=== PATIENT | female | born 1960 | race Caucasian/White ===

== ENCOUNTER → 2016-04-11 09:58 | Outpatient (CLI) | payer BC, MEDICARE ==
[2015-12-19 11:22] VITALS: BMI 35.5
[~2016-04-11 09:58] MED LIST: AMITRIPTYLINE H50 MG PO; AMRIX15 M1 PO; ATIVAN2 MG PO; BENICAR20 MG PO; BYSTOLIC10 MG PO; CARAFATE1 G/10 ML PO; CATAPRES TTS-10.1 MG TP; DILAUDID2 MG PO; DURAGESIC1 PATCH .7 TRANSDERM; ELAVIL25 MG PO; EXCEDRIN EXTRA1 TAB PO; KLONOPIN1 MG PO; LINZESS145 MCG PO; METOPROLOL TAR100 MG PO; NORCO 10/325 TA1 TA1 PO; NUCYNTA; ONDANSETRON4 MG/2 M3 IM; ONDANSETRON4 MG/2 M3 IV; PANCREASE PO; PANCRELIPASE 51 EACH PO; PROTONIX40 MG PO; REGLAN10 MG PO; REGLAN5 MG PO; ZANAFLEX4 MG PO; ZOFRAN8 MG PO
== END | disposition home or self-care (01) ==
LOC: D.MRI 09:58
DX: M25.512 Pain in left shoulder (principal)

== ENCOUNTER 2016-04-25 13:41 | Emergency (ER) | payer BC, MEDICARE ==
[2015-12-19 11:22] VITALS: BMI 35.5
== END 2016-04-25 17:20 | disposition home or self-care (01) ==
LOC: D.ER 13:41
DX: S06.0X0A Concussion without loss of consciousness, initial encounter (principal); W07.XXXA Fall from chair, initial encounter; Y93.89 Activity, other specified; Y92.019 Unspecified place in single-family (private) house as the place of occurrence of the external cause; S16.1XXA Strain of muscle, fascia and tendon at neck level, initial encounter; S40.012A Contusion of left shoulder, initial encounter; K86.1 Other chronic pancreatitis

== ENCOUNTER → 2016-06-02 17:14 | Outpatient (CLI) | payer BC, MEDICARE ==
[2015-12-19 11:22] VITALS: BMI 35.5
== END | disposition home or self-care (01) ==
LOC: D.MAMMO 05-29 10:00
DX: Z12.31 Encounter for screening mammogram for malignant neoplasm of breast (principal)

== ENCOUNTER 2016-06-20 04:44 | Emergency (ER) | payer BC, MEDICARE ==
[2015-12-19 11:22] VITALS: BMI 35.5
[2016-06-20 06:03] LABS: BASOPHILS 0.2 % (0-2); EOSINOPHILS 1.5 % (0-7); HEMATOCRIT 44.4 % (36.0-48.0); HEMOGLOBIN 15.3 g/dL (12-16); IMMATURE GRANULOCYTES 0.1 % (0-5); LYMPHOCYTES 24.2 % (15-50); MCH 30.2 pg (26.0-34.0); MCHC 34.5 g/dL (31.0-37.0); MCV 87.6 fL (80.0-100.0); MEAN PLATELET VOLUME 13.6 fL (7.4-10.4); MONOCYTES 10.8 % (2-11); NEUTROPHILS 63.2 % (40-80); RBC 5.07 10x6/uL (4.00-5.40); RDW 13.8 % (11.5-14.5); WBC 8.2 10x3/uL (4.8-10.8)
[2016-06-20 06:06] LABS: PLATELET COUNT 137 10x3/uL (130-400)
[2016-06-20 07:12] LABS: ERYTHROCYTE SEDIMENTATION RATE 14 mm/hr (0-30)
== END 2016-06-20 08:28 | disposition home or self-care (01) ==
LOC: D.ER 04:44
PROVIDERS: Emergency Medicine
DX: M25.551 Pain in right hip (principal); K86.1 Other chronic pancreatitis

== ENCOUNTER → 2016-07-21 15:59 | Outpatient (CLI) | payer BC, MEDICARE ==
[2015-12-19 11:22] VITALS: BMI 35.5
== END | disposition home or self-care (01) ==
LOC: D.MAMMO 08:30
DX: R92.8 Other abnormal and inconclusive findings on diagnostic imaging of breast (principal)

== ENCOUNTER 2016-08-31 10:50 | Emergency (ER) | payer BC, MEDICARE ==
[2015-12-19 11:22] VITALS: BMI 35.5
== END 2016-08-31 17:00 | disposition home or self-care (01) ==
LOC: D.ER 10:50
DX: M51.37 Other intervertebral disc degeneration, lumbosacral region (principal); G43.909 Migraine, unspecified, not intractable, without status migrainosus

== ENCOUNTER 2016-09-12 12:18 | Observation (INO) | payer BC, MEDICARE ==
[~2016-09-12] VITALS: Ht 160 cm; Wt 112.7 kg
[2016-09-12 12:49] LABS: BASOPHILS 0.2 % (0-2); EOSINOPHILS 1.7 % (0-7); HEMATOCRIT 45.8 % (36.0-48.0); HEMOGLOBIN 15.7 g/dL (12-16); IMMATURE GRANULOCYTES 0.2 % (0-5); LYMPHOCYTES 23.9 % (15-50); MCH 30.7 pg (26.0-34.0); MCHC 34.3 g/dL (31.0-37.0); MCV 89.5 fL (80.0-100.0); MEAN PLATELET VOLUME 12.8 fL (7.4-10.4); MONOCYTES 5.7 % (2-11); NEUTROPHILS 68.3 % (40-80); PLATELET COUNT 135 10x3/uL (130-400); RBC 5.12 10x6/uL (4.00-5.40); WBC 8.9 10x3/uL (4.8-10.8)
[2016-09-12 12:53] LABS: APTT 21.9 SECONDS (22.8-39.4); INR 0.91 (0.85-1.17); PROTIME 12.1 SECONDS (11.6-15.0)
[2016-09-12 13:00] LABS: ALBUMIN 3.6 g/dL (3.4-5.0); ALKALINE PHOSPHATASE 108 U/L (46-116); ALT (SGPT) 30 U/L (10-68); BILIRUBIN - TOTAL 0.39 mg/dL (0.2-1.3); CALC OSMOLALITY 284 mosm/kg (275-300); CALCIUM 9.1 mg/dL (8.5-10.1); CARBON DIOXIDE 22.1 mmol/L (21.0-32.0); CHLORIDE - SERUM 110 mmol/L (98-107); CREATININE - SERUM 0.9 mg/dL (0.6-1.3); GLUCOSE 126 mg/dL (74-106); POTASSIUM - SERUM 3.9 mmol/L (3.5-5.1); PROTEIN - SERUM 7.6 g/dL (6.4-8.2); SODIUM 142 mmol/L (136-145); UREA NITROGEN 12 mg/dL (7-18); eGFR NON AFRICAN AMERICAN 69 mL/min (90-120)
[2016-09-12 13:02] LABS: CREATINE KINASE 82 UL (21-215)
[2016-09-12 13:12] LABS: TROPONIN-I < 0.017 ng/mL (0.000-0.060)
--- NOTE | 2016-09-12 16:45 | NUR ---
PT TO ROOM 2219 FROM ER VIA WHEELCHAIR.PT WITHOUT DISTRESS. GAIT STEADY. STATES PAIN BETTER AFTER PAIN MEDS IN ER.ORIENTATION TO ROOM.CALL LIGHT IN REACH
[2016-09-12] MEDS ORDERED: CYCLOBENZAPRINE10 MG PO (17:14)
[2016-09-12] MEDS ORDERED: TOPAMAX200 MG PO (17:17)
[2016-09-12] MEDS ORDERED: BELSOMRA20 MG PO (17:17)
[2016-09-12] MEDS ORDERED: ZOCOR20 MG PO (17:18)
[2016-09-12] MEDS ORDERED: DURAGESIC1 PATCH .4 TRANSDERM (17:19)
[2016-09-12 18:29] VITALS: BP 128/76; Ht 160 cm; Wt 112.7 kg
--- NOTE | 2016-09-12 19:07 | NUR ---
PT IS SITTING UP IN BED, STATED HAS YEAST UNDER BREASTS BUT NOW ALSO HAS IT IN ILIEC CREST AND PUBIS AREA, USES NYSTATIN AT HOME, WENT AHEAD AD PUT IN ORDERS FOR NYSTATIN AND WILL LET BERNA GUTIERREZ KNOWBED IS IN LOW PAOSITED AND CALL LIGHT IN REACH
[2016-09-13] VITALS: BP 140/77
[2016-09-13 04:00] VITALS: BP 138/70
--- NOTE | 2016-09-13 05:03 | NUR ---
PT IS SITTING UP IN BED WITH NO TV ON DRINKING A COKE. SHE USING A DIRECTOR OF EXHIBIT DEVELOPMENT FOR PAIN CONTROL AND WAS CHECKED EARLIER FOR WHY IT DID NOT COME ON QUICK SHE WANTED. SHE FEELS LIKE IT IS WORKING NOW AND SEEMS LIKE SHE IS COMFORTABLE.
--- NOTE | 2016-09-13 07:30 | NUR ---
REPORT RECEIVED FROM HOOK TENDER NURSE. CALL LIGHT IN REACH.
[2016-09-13 07:45] VITALS: BP 149/93
--- NOTE | 2016-09-13 09:50 | NUR ---
ASSESSMENT COMPLETED. REFUSES SCDs. CALL LIGHT IN REACH. WILL CONTINUE WITH PLAN OF CARE.
--- NOTE | 2016-09-13 11:40 | NUR ---
WAITING TO SEE MD. EXPLAINED TO HER THAT DR. CORONEL WILL BE HERE SOME TIME LATER TODAY. VERBALIZED UNDERSTANDING.
[2016-09-13 12:21] VITALS: BP 99/58
--- NOTE | 2016-09-13 13:58 | NUR ---
NEW ORDERS RECEIVED FOR HOME MEDS.
--- NOTE | 2016-09-13 14:34 | NUR ---
MEDS ADMINISTERED PER MD ORDER. CALL LIGHT IN REACH.
--- NOTE | 2016-09-13 15:34 | NUR ---
COMPLAINING OF PAIN TO L SIDE OF HEAD. 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 DENIES ANY NEEDS AT THIS TIME.
[2016-09-13 15:54] VITALS: BP 121/64
--- NOTE | 2016-09-13 16:50 | NUR ---
RESTING WITH EYES CLOSED. RESP EVEN AND UNLABORED. CALL LIGHT IN REACH.
--- NOTE | 2016-09-13 18:47 | NUR ---
NO CHANGES IN INITIAL ASSESSMENT. CALL LIGHT IN REACH. WILL CONTINUE WITH PLAN OF CARE. REFUSES SCDs.
[2016-09-13 20:00] VITALS: BP 133/68
--- NOTE | 2016-09-13 20:10 | NUR ---
A&O, COMPLAINTS OF MIGRAINE, TOPAMAX GIVEN PER MAR, DENIES OTHER NEEDS, BED LOWEST POSITION, CALL LIGHT IN REACH, WILL CONTINUE TO MONITOR
--- NOTE | 2016-09-14 02:17 | NUR ---
RESTING WITH EYES CLOSED. RR EVEN U/L. NO S/S OF DISTRESS OR DISCOMFORT. CL IN REACH.
[2016-09-14 04:00] VITALS: BP 120/71
--- NOTE | 2016-09-14 07:15 | NUR ---
REPORT RECEIVED FROM SKEIN YARD DRIER NURSE. CALL LIGHT IN REACH.
[2016-09-14 07:53] VITALS: BP 120/79
--- NOTE | 2016-09-14 09:47 | NUR ---
ASSESSMENT COMPLETED. AM MEDS WITH DILAUDID PO. ZOFRAN ALSO GIVEN SIVP. CALL LIGHT IN REACH. STILL REFUSES SCDs. WILL CONTINUE WITH PLAN OF CARE.
--- NOTE | 2016-09-14 11:20 | NUR ---
NO NEEDS VOICED AT THIS ITME. CALL LIGHT IN REACH.
--- NOTE | 2016-09-14 13:20 | NUR ---
TO MRI VIA WC
--- NOTE | 2016-09-14 14:59 | NUR ---
AFTERNOON MEDS ADMINISTERED. ZOFRAN PO. CALL LIGHT IN REACH.
[2016-09-14 15:55] VITALS: BP 111/73
--- NOTE | 2016-09-14 16:03 | NUR ---
DR. CORONEL WAS IN ROOM TO SPEAK WITH PATIENT.
--- NOTE | 2016-09-14 18:35 | NUR ---
NO CHANGES IN INITIAL ASSESSMENT. CALL LIGHT IN REACH. STILL REFUSE SCDs. WILL CONTINUE WITH PLAN OF CARE.
[2016-09-14 20:00] VITALS: BP 124/68
--- NOTE | 2016-09-14 20:00 | NUR ---
ASSESSMENT PER FLOWSHEET. IV PATENT RT INFUSAPORT OF NS AT 30CC'S/HR SITE CLEAR. CUSTOMER RESPONSE REPRESENTATIVE OF DILAUDID IN USE WITH SETTINGS AT 0.2MG Q10MIN W/4MG Q4H L/O. ALERT/ORIENTED X4 BARAJAS WITH EQUAL CHOCOLATE REFINING ROLLER. SPEECH CLEAR NO FACIAL DROOP NO NUMBNESS OR TINGLING.
--- NOTE | 2016-09-14 21:00 | NUR ---
MEDS GIVEN PER MAR.
--- NOTE | 2016-09-15 | NUR ---
RESTING DEVYNTY DENIES NEEDS.
--- NOTE | 2016-09-15 01:12 | NUR ---
UP AD KELLIE TO
[2016-09-15 04:00] VITALS: BP 110/66
--- NOTE | 2016-09-15 08:05 | NUR ---
SCHEDULED MEDICATIONS ADMINISTERED AT THIS TIME. ASSESSMENT PERFORMED PER FLOWSHEET. ANDROID ARCHITECT SYRINGE RE-FILLED DUE TO EXISTING SYRINGE BEING EMPTY. DRESSING TO RIGHT CHEST PORT INTACT. PT HOPEFUL FOR DISCHARGE HOME TODAY.
[2016-09-15 08:12] VITALS: BP 127/76
--- NOTE | 2016-09-15 11:31 | NUR ---
SPOKE WITH ASHWINI AT DR CORONEL'S OFFICE AT THIS TIME REGARDING WISH TO D/C HOME.
[2016-09-15 12:06] VITALS: BP 115/70
--- NOTE | 2016-09-15 13:28 | NUR ---
PRN DILAUDID ADMINISTERED AT THIS TIME FOR PAIN. RIGHT CHEST PORT DEACCESSED. DISCHARGE PAPERWORK REVIEWED. PT STATES THAT SHE HAD MEDICATIONS LOCKED UP IN THE PHARMACY UPON ARRIVAL TO THE EMERGENCY ROOM. CALLED PHARMACY AT 1310 AND THEY SAID THEY DID NOT HAVE THE MEDICATIONS. CALLED ER AT 2400 AND KAY STATED THAT SHE WOULD LOOK INTO IT.
== END 2016-09-15 15:35 | disposition home or self-care (01) ==
LOC: D.ER 12:18 → D.MS 15:17 → OBSVTIME 15:17 → D.MS 15:17
PROVIDERS: Emergency Medicine; ADMIT Legal Medicine
DX: G43.809 Other migraine, not intractable, without status migrainosus (principal); F41.9 Anxiety disorder, unspecified; K21.9 Gastro-esophageal reflux disease without esophagitis; I10 Essential (primary) hypertension; K59.09 Other constipation; G89.29 Other chronic pain; M54.5 Low back pain; F51.02 Adjustment insomnia; M54.2 Cervicalgia

== ENCOUNTER 2016-09-28 21:13 | Emergency (ER) | payer BC, MEDICARE ==
[2016-09-12 18:29] VITALS: BMI 44.0
[~2016-09-28 21:13] MED LIST changes: +BELSOMRA20 MG PO; +CYCLOBENZAPRINE10 MG PO; +DURAGESIC1 PATCH .4 TRANSDERM; +TOPAMAX200 MG PO; +ZOCOR20 MG PO
== END 2016-09-28 22:50 | disposition home or self-care (01) ==
LOC: D.ER 21:13
DX: S80.01XA Contusion of right knee, initial encounter (principal); X58.XXXA Exposure to other specified factors, initial encounter; Y93.89 Activity, other specified; Y92.89 Other specified places as the place of occurrence of the external cause

== ENCOUNTER 2016-10-07 10:53 | Inpatient (IN) | payer BC, MEDICARE ==
[~2016-10-07] VITALS: Ht 160 cm; Wt 85.3 kg
[2016-10-07 11:41] VITALS: BP 171/82; BMI 33.3
--- NOTE | 2016-10-07 12:00 | NUR ---
PT AOX4 RESP EVEN AND NONLABORED PT DENIES NEEDS AT THIS TIME IV TO RIGHT CHEST PORT PATENT AND INTACT AT THIS TIME SRX2 BED AT LOWEST SETTING CALL LIGHT WITHIN REACH WILL CONTINUE TO MONITOR
[2016-10-07 12:04] LABS: BASOPHILS 0.4 % (0-2); HEMOGLOBIN 15.5 g/dL (12-16); IMMATURE GRANULOCYTES 0.1 % (0-5); LYMPHOCYTES 27.8 % (15-50); MCH 30.7 pg (26.0-34.0); MCHC 34.4 g/dL (31.0-37.0); MCV 89.1 fL (80.0-100.0); MEAN PLATELET VOLUME 13.4 fL (7.4-10.4); MONOCYTES 9.1 % (2-11); NEUTROPHILS 61.6 % (40-80); PLATELET COUNT 156 10x3/uL (130-400); RBC 5.05 10x6/uL (4.00-5.40); RDW 14.6 % (11.5-14.5); WBC 7.9 10x3/uL (4.8-10.8)
[2016-10-07 12:05] VITALS: BP 171/82
[2016-10-07 12:19] LABS: ALBUMIN 3.8 g/dL (3.4-5.0); ANION GAP 13.1 mmol/L (8-16); BILIRUBIN - TOTAL 0.59 mg/dL (0.2-1.3); CALCIUM 10.5 mg/dL (8.5-10.1); CARBON DIOXIDE 26.4 mmol/L (21.0-32.0); CREATININE - SERUM 0.9 mg/dL (0.6-1.3); POTASSIUM - SERUM 3.5 mmol/L (3.5-5.1); PROTEIN - SERUM 7.6 g/dL (6.4-8.2)
--- NOTE | 2016-10-07 20:32 | NUR ---
REC'D.IN BED EYES CLOSED RESP.DEEP AND EVEN.INFRASTRUCTURE DESIGN ENGINEER DILAUDID INFUSING FOR SELF PAIN CONTROL. WILL CONTINUE TO MONITOR FOR ANY CHGES. AND FOLLOW CURRENT PLAN OF CARE.
[2016-10-07 23:59] VITALS: BP 121/75
--- NOTE | 2016-10-08 02:00 | NUR ---
PT IN BED WITH NO DISTRESS. RESPIRATIONS EVEN AND UNLABORED. SIDE RAILS X 2. BED IS LOW. CALL LIGHT IN REACH.
--- NOTE | 2016-10-08 07:55 | NUR ---
PT AOX4 RESP EVEN AND NONLABORED PT DENIES NEEDS AT THIS TIME IV TO RIGHT FOREARM PATENT AND INTACT AT THIS TIME SRX2 BED AT LOWEST SETTING CALL LIGHT WITHIN REACH WILL CONTINUE TO MONITOR
[2016-10-08 09:33] VITALS: BP 134/71
--- NOTE | 2016-10-08 11:12 | NUR ---
Patient Name: TAWNY TYSON Admission Status: Elective Accout number: [id number] Admission Date: 10-07-2016 : 1960 Admission Diagnosis: Attending: SAMANTHA CORONEL Current LOS: 1 Anticipated DC Date: 10-10-2016 Planned Disposition: Home Primary Insurance: [employer] [facility] Discharge Planning Comments: CM MET WITH PATIENT REGARDING D/C NEEDS AND PLANS. PATIENT STATED SHE LIVES WITH HER SPOUSE AND HE PROBABLY WILL DRIVE HER HOME AT DISCHARGE. PATIENT STATED SHE HAS A RAMP TO ENTER HOME AND NO STAIRS INSIDE. PATIENT IS PARTIAL DEPENDENT FOR HER CARE/HER SPOUSE HELPS WITH BATHING AND MEDICATION. PATIENT HAS A WALKER, WHEELCHAIR, SHOWER CHAIR, OXYGEN HS, AND NEBULIZER AT HOME. PATIENTS PCP IS DR. CORONEL AND PHARMACY IS [facility]. CM WILL CONTINUE TO FOLLOW PATIENT WITH D/C NEEDS AND PLANS. PCP DR. BERNA BUNCH [facility]- [phone] ROB (SPOUSE) [phone] Car Conditioner: Adore Smith Is the patient Alert and Oriented? Yes 0 * How many steps to enter\exit or inside your home? RAMP 0 * PCP DR. CORONEL 0 * Pharmacy [facility] 0 * Preadmission Environment Home with Family 0 * ADLs Partial Dependent 0 * Partial ADLs (Assistance needed) Bathing Medication Management 0 * Equipment Nebulizer Oxygen Shower Chair Walker Wheelchair 0 * List name and contact numbers for known caregivers / representatives who currently or will assist patient after discharge: ROB (SPOUSE) [phone] * Community resources currently utilized None 0 * Additional services required to return to the preadmission environment? Yes 0 * Can the patient safely return to the preadmission environment? Yes 0 * Has this patient been hospitalized within the prior 30 days at any hospital? No 0 Grand Total: 0
[2016-10-08 13:40] VITALS: BP 132/78
[2016-10-08 14:17] VITALS: Ht 160 cm; Wt 85.3 kg
--- NOTE | 2016-10-08 15:55 | NUR ---
PT RIGHT CHEST PORT PATENT AND INTACT. DRESSING CHANGED USING STERILE TECHNIQUE AT THIS TIME PT TOLERATED WITHOUT DIFFICULTY AT THIS TIME
[2016-10-08 17:15] VITALS: BP 128/74
[2016-10-08 19:00] VITALS: BP 138/84
--- NOTE | 2016-10-08 20:00 | NUR ---
ASSESSMENT PER FLOW SHEET.PT WITHOUT DISTRESS.SHE REPORTS EMESIS X2 THIS AM AND ALSO REPORTS LOOSE STOOLS.RIGHT KNEE SWOLLEN WITH VERY LARGE BRUISE. BRUISES ALSO NOTED TO LEFT KNEE.SLIGHT RASH UNDER BREAT AND IN ABDOMINAL FOLDS.CALL LIGHT IN REACH
[2016-10-08 21:05] LABS: AMYLASE - SERUM 105 U/L (25-115); LIPASE 177 U/L (73-393)
[2016-10-08 23:33] LABS: APPEARANCE CLEAR (CLEAR); BILIRUBIN NEGATIVE (NEGATIVE); COLOR YELLOW (YELLOW); GLUCOSE NEGATIVE (NEGATIVE); KETONE SMALL mg/dL (NEGATIVE); LEUKOCYTE ESTERASE 1+ (NEGATIVE); NITRITE NEGATIVE (NEGATIVE); PROTEIN NEGATIVE (NEGATIVE); SPECIFIC GRAVITY 1.015 (1.005-1.020); UROBILINOGEN NORMAL (NORMAL)
[2016-10-08 23:35] LABS: BACTERIA MODERATE /hpf (NONE SEEN); EPITHELIAL CELLS 0-5 /hpf (0-5); RED CELLS - URINE 0-5 /hpf (0-5)
[2016-10-09 04:00] VITALS: BP 150/80
--- NOTE | 2016-10-09 05:47 | NUR ---
REPORTS INCREASED PAIN IN RIGHT KNEE.STATES VERY SORE THIS AM.KNEE HAS SOME SWELLING.STILL COMPLAINS OF LOOSE STOOLS.CONT PLAN OF CARE
--- NOTE | 2016-10-09 07:29 | NUR ---
WITHOIUT NEEDS,WITHOUT CHANGE.CONT PLAN OF CARE
--- NOTE | 2016-10-09 08:13 | NUR ---
A&O, DENIES NEEDS, BED LOWEST POSITION, CALL LIGHT IN REACH, WILL CONTINUE TO MONITOR
[2016-10-09 09:49] VITALS: BP 118/67
--- NOTE | 2016-10-09 13:18 | NUR ---
Nutrition Follow Up: Chart reviewed. Pt with no diet ordered. Spoke with nursing who stated that pt has not had emesis today and felt clear liquid diet would be tolerated; stated ok to advance to clear liquids. Will order clear liquid diet as tolerated. RD following.
[2016-10-09 14:21] VITALS: BP 131/70
[2016-10-09 14:41] VITALS: BP 126/73
[2016-10-09 17:01] VITALS: BP 126/73
--- NOTE | 2016-10-09 19:40 | NUR ---
ASSESSMENT PER FLOW SHEET.PT WITHOUT DISTRESS.DENIES NEEDS.CALL LIGHT IN REACH.
[2016-10-09 20:00] VITALS: BP 137/70
[2016-10-09] MEDS ORDERED: CYCLOBENZAPRINE10 MG PO (20:32)
[2016-10-09] MEDS ORDERED: DURAGESIC1 PATCH .4 TRANSDERM (20:33)
[2016-10-09] MEDS ORDERED: DILAUDID2 MG PO (20:33)
[2016-10-09] MEDS ORDERED: KLONOPIN1 MG PO (20:33)
[2016-10-09] MEDS ORDERED: DURAGESIC1 PATCH .7 TRANSDERM (20:33)
[2016-10-09] MEDS ORDERED: ZOCOR20 MG PO (20:33)
[2016-10-09] MEDS ORDERED: BELSOMRA20 MG PO (20:34)
[2016-10-09] MEDS ORDERED: TOPAMAX200 MG PO (20:34)
[2016-10-09] MEDS ORDERED: PROTONIX40 MG PO (20:34)
[2016-10-09] MEDS ORDERED: LINZESS145 MCG PO (20:34)
--- NOTE | 2016-10-09 22:16 | NUR ---
DISCHARGE INSTRUCTIONS,STATES UNDERSTANDING.PORT FLUSHED AND NEEDLE DCD.
--- NOTE | 2016-10-09 22:31 | NUR ---
PAGE TO DR. BERNA QURESHI.. SCRIPT FOR MEDS NEEDED
--- NOTE | 2016-10-09 22:38 | NUR ---
PT STATES SHE HAS ENOUGH MEDS TILL AM.WILL GO SEE FOR SCRIPTS AND CHOOSES TO DISCHARGE HOME TONIGHT ORDERED.
--- NOTE | 2016-10-09 22:46 | NUR ---
LEFT UNIT VIA WHEELCHAIR.
== END 2016-10-09 22:47 | disposition home or self-care (01) | DRG 392 ==
LOC: D.RAD 10:53 → D.MS 10:55
PROVIDERS: ADMIT Legal Medicine
DX: R10.9 Unspecified abdominal pain (principal); E86.0 Dehydration; R19.7 Diarrhea, unspecified; K21.9 Gastro-esophageal reflux disease without esophagitis

== ENCOUNTER → 2016-11-03 13:05 | Outpatient (CLI) | payer BC, MEDICARE | END | disposition home or self-care (01) | LOC: D.RAD 13:05 | DX: R05 Cough (principal); R09.89 Other specified symptoms and signs involving the circulatory and respiratory systems ==

== ENCOUNTER 2016-11-06 02:30 | Emergency (ER) | payer BC, MEDICARE ==
[2016-10-08 14:17] VITALS: BMI 33.3
== END 2016-11-06 04:06 | disposition home or self-care (01) ==
LOC: D.ER 02:30
DX: R11.10 Vomiting, unspecified (principal); R10.9 Unspecified abdominal pain; T40.605A Adverse effect of unspecified narcotics, initial encounter; Y92.019 Unspecified place in single-family (private) house as the place of occurrence of the external cause; K56.7 Ileus, unspecified

== ENCOUNTER 2016-11-09 10:07 | Emergency (ER) | payer BC, MEDICARE ==
[2016-10-08 14:17] VITALS: BMI 33.3
[2016-11-09 10:54] LABS: BASOPHILS 0.1 % (0-2); EOSINOPHILS 0.4 % (0-7); HEMATOCRIT 46.9 % (36.0-48.0); HEMOGLOBIN 16.4 g/dL (12-16); IMMATURE GRANULOCYTES 0.2 % (0-5); LYMPHOCYTES 21.2 % (15-50); MCH 31.7 pg (26.0-34.0); MCV 90.5 fL (80.0-100.0); MEAN PLATELET VOLUME 13.1 fL (7.4-10.4); MONOCYTES 9.1 % (2-11); PLATELET COUNT 136 10x3/uL (130-400); RBC 5.18 10x6/uL (4.00-5.40); WBC 11.9 10x3/uL (4.8-10.8)
[2016-11-09 11:16] LABS: ALBUMIN 3.5 g/dL (3.4-5.0); ANION GAP 11.3 mmol/L (8-16); BILIRUBIN - TOTAL 0.88 mg/dL (0.2-1.3); CALCIUM 9.1 mg/dL (8.5-10.1); CARBON DIOXIDE 26.5 mmol/L (21.0-32.0); CREATININE - SERUM 0.9 mg/dL (0.6-1.3); MAGNESIUM - SERUM 2.1 mg/dL (1.8-2.4); POTASSIUM - SERUM 3.8 mmol/L (3.5-5.1); PROTEIN - SERUM 7.2 g/dL (6.4-8.2)
== END 2016-11-09 11:52 | disposition home or self-care (01) ==
LOC: D.ER 10:07
PROVIDERS: Emergency Medicine
DX: R11.10 Vomiting, unspecified (principal); K27.9 Peptic ulcer, site unspecified, unspecified as acute or chronic, without hemorrhage or perforation

== ENCOUNTER 2017-05-05 12:29 | Emergency (ER) | payer BC, MEDICARE ==
[2016-10-08 14:17] VITALS: BMI 33.3
== END 2017-05-05 22:00 | disposition home or self-care (01) ==
LOC: D.ER 12:29
DX: G43.909 Migraine, unspecified, not intractable, without status migrainosus (principal); R11.2 Nausea with vomiting, unspecified

== ENCOUNTER 2017-06-22 09:50 | Emergency (ER) | payer BC, MEDICARE ==
[2016-10-08 14:17] VITALS: BMI 33.3
== END 2017-06-22 12:20 | disposition home or self-care (01) ==
LOC: D.ER 09:50
DX: R51 Headache (principal); R11.2 Nausea with vomiting, unspecified

== ENCOUNTER → 2017-07-01 21:11 | Outpatient (CLI) | payer BC, MEDICARE ==
[2016-10-08 14:17] VITALS: BMI 33.3
== END | disposition home or self-care (01) ==
LOC: D.MAMMO 15:00
DX: R92.8 Other abnormal and inconclusive findings on diagnostic imaging of breast (principal)

== ENCOUNTER → 2017-07-07 12:22 | Outpatient (CLI) | payer BC, MEDICARE ==
[2016-10-08 14:17] VITALS: BMI 33.3
== END | disposition home or self-care (01) ==
LOC: D.MRI 12:22
DX: M75.41 Impingement syndrome of right shoulder (principal)

== ENCOUNTER → 2017-08-04 10:27 | Outpatient (CLI) | payer BC, MEDICARE ==
[2016-10-08 14:17] VITALS: BMI 33.3
== END | disposition home or self-care (01) ==
LOC: D.MRI 10:27
DX: S83.231A Complex tear of medial meniscus, current injury, right knee, initial encounter (principal)

== ENCOUNTER → 2017-12-30 14:28 | Outpatient (CLI) | payer BC, MEDICARE ==
[2016-10-08 14:17] VITALS: BMI 33.3
[2017-12-30 14:51] LABS: BASOPHILS 0.4 % (0-2); EOSINOPHILS 1.5 % (0-7); HEMATOCRIT 46.3 % (36.0-48.0); HEMOGLOBIN 16.1 g/dL (12-16); LYMPHOCYTES 33.8 % (15-50); MCH 31.7 pg (26.0-34.0); MCHC 34.8 g/dL (31.0-37.0); MCV 91.1 fL (80.0-100.0); MEAN PLATELET VOLUME 13.5 fL (7.4-10.4); MONOCYTES 6.6 % (2-11); NEUTROPHILS 57.7 % (40-80); PLATELET COUNT 148 10x3/uL (130-400); RBC 5.08 10x6/uL (4.00-5.40); RDW 13.6 % (11.5-14.5); WBC 6.9 10x3/uL (4.8-10.8)
[2017-12-30 15:11] LABS: ALBUMIN 3.8 g/dL (3.4-5.0); ALKALINE PHOSPHATASE 71 U/L (46-116); ALT (SGPT) 18 U/L (10-68); BILIRUBIN - TOTAL 0.36 mg/dL (0.2-1.3); CALC OSMOLALITY 278 mosm/kg (275-300); CALCIUM 9.5 mg/dL (8.5-10.1); CARBON DIOXIDE 21.8 mmol/L (21.0-32.0); CHLORIDE - SERUM 107 mmol/L (98-107); CREATININE - SERUM 0.8 mg/dL (0.6-1.3); GLUCOSE 92 mg/dL (74-106); POTASSIUM - SERUM 3.4 mmol/L (3.5-5.1); PROTEIN - SERUM 7.4 g/dL (6.4-8.2); SODIUM 141 mmol/L (136-145); UREA NITROGEN 7 mg/dL (7-18); eGFR NON AFRICAN AMERICAN 78 mL/min (90-120)
[2017-12-30 15:12] LABS: APTT 31.6 SECONDS (22.8-39.4); INR 1.12 (0.85-1.17)
== END | disposition home or self-care (01) ==
LOC: D.LAB 14:28
PROVIDERS: Neurological Surgery
DX: Z01.812 Encounter for preprocedural laboratory examination (principal)

== ENCOUNTER 2018-11-19 10:58 | Emergency (ER) | payer BC, MEDICARE ==
[~2018-11-19] VITALS: Ht 160 cm; Wt 77.3 kg
[2018-11-19 10:59] VITALS: Ht 160 cm; Wt 77.3 kg
[2018-11-19 13:14] VITALS: BP 140/90
== END 2018-11-19 13:15 | disposition home or self-care (01) ==
LOC: D.ER 10:58
DX: S93.401A Sprain of unspecified ligament of right ankle, initial encounter (principal); W13.8XXA Fall from, out of or through other building or structure, initial encounter

== ENCOUNTER 2018-12-05 14:14 | Inpatient (IN) | payer BC, MEDICARE ==
[~2018-12-05] VITALS: Ht 160 cm; Wt 72.6 kg
--- NOTE | ~2018-12-05 | HEMODYNAMI ---
PATIENT:TAWNY TYSON MEDICAL RECORD: [id number] : 62 LOCATION:[facility] D.[address] [facility]# [id number] ADMISSION DATE: 12/05/18 Generatedon:12/05/201815:17 Patient name: TAWNY TYSON Patient #: [id number] : 1960 Date of study: 12/05/2018 Page: Of Hemodynamic Procedure Report Patient Data Patient Demographics Procedure consent was obtained First Name: TAWNY Gender: Female Last Name: MARBELLA : 1960 Middle Initial: L Age: 58 year(s) Patient #: [id number] Race: SSN: [id number] Additional ID: [id number] Contact details Address: [address] [place] [address] State: [place] City: [place] Zip code: [address] Past Medical History Allergies: No known allergies Admission Admission Data Admission Date: 12/05/2018 Admission Time: 14:20 Arrival Date: 12/05/2018 Arrival Time: 14:14 Admit Source: Emergency Insurance Payor: Private department health insurance, Medicare Room #: D.[address] [facility] #: [id number] Height (in.): 64 BSA: 1.83 (m2) Height (cm.): 162.56 BMI: 29.18 (kg/m2) Weight (lbs.): 170 Weight (kg.): 77.11 Lab Results Lab Result Date: 12/05/2018 Lab Result Time: 0:00 Biochemistry Name Units Result Min Max BUN mg/dl 20 --(----)*- 7 18 Creatinine mg/dl 1.1 --(--*-)-- 0.6 1.3 eGFR ml/min 54 *-(----)-- 90 120 NONAFRICAN CBC Name Units Result Min Max Hemoglobin g/dl 16.8 --(---*)-- 13.5 17.5 Procedure Procedure Types Cath Procedure Diagnostic Procedure LHC LHC w/Coronaries Procedure Description Procedure Date Procedure Date: 12/05/2018 Procedure Start Time: 14:54 Procedure End Time: 15:04 Procedure Staff Name Function Dewayne Adams MD Performing Physician Steph Wright RT Monitor Apoorva Billingsley RT Scrub Александр Fragoso RN Nurse Procedure Data Cath Procedure Fluoroscopy Diagnostic fluoroscopy Total fluoroscopy Time: 1.1 time: 1.1 min min Diagnostic fluoroscopy Total fluoroscopy dose: 299 dose: 299 mGy mGy Contrast Material Contrast Material Type Amount (ml) Isovue 300 47 Entry Location Entry Primary Successful Side Size Upsize Upsize Entry Closure Succes sful Closure Location (Fr) 1 (Fr) 2 (Fr) Remarks Device Remarks Femoral Right 6 Fr Exoseal artery Short Estimated blood loss: 5 ml Diagnostic catheters Device Type Used For End Catheter Placement MULTIPACK Pigtail 5 Fr Procedure catheter MULTIPACK JL 4.0 5Fr Procedure catheter MULTIPACK 3DRC 5Fr Procedure catheter Procedure Complications No complications Procedure Medications Medication Administration Route Dosage 0.9% NaCl I.V. 100 ml/hr Oxygen etCO2 Nasal cannula 2 l/min Heparin Flush Bag added to field 2 bags (1000units/500ml NS) Lidocaine 2% added to field 20 Lopressor I.V. 5 mg Versed I.V. 2 mg Fentanyl I.V. 100 mcg Versed I.V. 2 mg Hemodynamics Rest BSA: 1.83 (m2) HGB: 16.8 (g/dl) O2 Consumption: Estimated: 196.61 (ml/min) O2 Co nsumption indexed: Estimated:107.44 (ml/min/m) Heart Rate: 101 (bpm) Snapshots Pre Cath Intra NCS Post Cath Vital Signs Time Heart Resp SPO2 etCO2 NIBP (mmHg) Rhythm Pain Sedation Rate (ipm) (%) (mmHg) Status Level (bpm) 14:50:04 96 12 100 0 124/95(105) NSR 0 (11) 10(A) , No pain 14:55:44 87 10 98 0 108/81(89) NSR 0 (11) 10(A) , No pain 14:59:54 96 17 93 0 117/85(97) NSR 0 (11) 10(A) , No pain 15:04:10 92 11 94 0 113/80(94) NSR 0 (11) 10(A) , No pain Medications Time Medication Route Dose Verified Delivered Reason Notes Eff ectiveness by by 14:49:14 0.9% NaCl I.V. 100 Александр Александр Per ml/hr Fouzia Fragoso physician RN RN 14:49:23 Oxygen etCO2 2 Александр Александр for low 02 Nasal l/min Lorigan Lorigan sats cannula RN RN 14:49:35 Heparin Flush added 2 Александр Александр used for Bag to bags Lorigan Lorigan procedure (1000units/500ml field RN RN NS) 14:49:45 Lidocaine 2% added 20ml Александр Александр for local to vial Lorigan Lorigan anesthetic field RN RN 14:49:55 Lopressor I.V. 5 mg Александр Александр for Lorigan Lorigan arrhythmia RN RN 14:55:11 Versed I.V. 2 mg Александр Александр for Lorigan Lorigan sedation RN RN 14:55:16 Fentanyl I.V. 100 Александр Александр for mcg Lorigan Lorigan sedation RN RN 14:57:50 Versed I.V. 2 mg Александр Александр for Lorigan Lorigan sedation RN it consulting manager Log Time Note 14:25:13 Informed consent obtained and on chart 14:25:19 Diagnostic Cath Status : Emergency 14:25:38 Arrival Date: 12/05/2018 2:14:00 PM 14:25:45 Insurance Payor : Private health insurance, Medicare 14:25:48 Admit Source: Emergency department 14:27:09 ACC Patient presents with STEMI CCS Anginal Class 4--Inability to carry out any physical activity w/o angina. Angina may occur at rest. 14:27:14 Procedure Status Emergent Heart Cath ([facility]I). 14:27:21 Apoorva Billingsley RT(R) sent for patient. Start room use. 14:27:23 Time tracking: Regular hours (M-F 7:00 - 5:00) 14:27:44 Plan of Care:Hemodynamics will remain stable., Cardiac rhythm will remain stable., Comfort level will be maintained., Respiratory function will remain adequate., Patient/ family verbilizes understanding of procedure., Procedure tolerated without complication., Recovers from procedure without complications.. 14:47:32 Patient Weight : 170 lbs 14:47:39 Patient Height : 64 inches 14:48:53 Vital chart was started 14:49:14 0.9% NaCl 100 ml/hr I.V. was administered by Александр Fragoso RN; Per physician; Verbal order read back and verified. 14:49:23 Oxygen 2 l/min etCO2 Nasal cannula was administered by Александр Fragoso RN; for low 02 sats; Verbal order read back and verified. 14:49:27 Warm blankets applied, and mae hugger turned on for patient comfort. 14:49:28 Correct patient and procedure confirmed by team. 14:49:28 ECG and BP/O2 sat monitors applied to patient. 14:49:31 Baseline sample Acquired. 14:49:35 Heparin Flush Bag (1000units/500ml NS) 2 bags added to field was administered by Александр Fragoso RN; used for procedure; Verbal order read back and verified. 14:49:35 Full Disclosure recording started 14:49:40 H&P Date Dictated: 12/05/2018 Emergent; H&P N/A. 14:49:42 Pre-procedure instructions explained to patient. 14:49:44 Family in waiting room. 14:49:45 Lidocaine 2% 20ml vial added to field was administered by Александр Fragoso RN; for local anesthetic; Verbal order read back and verified. 14:49:47 Patient NPO since Breakfast. 14:49:55 Lopressor 5 mg I.V. was administered by Александр Fragoso RN; for arrhythmia; Verbal order read back and verified. 14:52:13 See chart 14:52:16 Is the patient allergic to Iodine/contrast media? No. 14:52:17 Was the patient premedicated? Yes 14:52:26 Is patient on blood thinner?Yes 14:52:31 ACC The patient was administered the following blood thiners within the last 24 hours: ACCPlavix, ACCHeparin 14:53:53 Snore? Yes 14:53:55 Sleep apnea? No 14:54:08 Dentures? No ? 14:54:16 Physician arrived 14:54:17 --------ALL STOP TIME OUT------ 14:54:18 Final Timeout: patient, procedure, and site verified with staff and physician. All members of the team are in agreement. 14:54:23 Right groin site verified by team. 14:54:29 Fire Safety Assessment: A--An alcohol-based skin anteseptic being used preoperatively., C--Open oxygen or nitrous oxide is being used., D--An ESU, laser, or fiber-optic light is being used. 14:54:34 Physical assessment completed. ASA score P 2 - A patient with mild systemic disease as per Dewayne Adams MD. 14:54:39 Sedation plan: IV Moderate Sedation Medication:Versed, Fentanyl 14:54:47 Procedure started. 14:54:51 Local anesthetic to right femoral artery with Lidocaine 2% by Dewayne Adams MD.INITIAL ACCESS ONLY 14:55:00 A 6 Fr Short sheath was inserted into the Right Femoral artery 14:55:04 J wire advanced. 14:55:11 Versed 2 mg I.V. was administered by Александр Fragoso RN; for sedation; Verbal order read back and verified. 14:55:16 Fentanyl 100 mcg I.V. was administered by Александр Fragoso RN; for sedation; Verbal order read back and verified. 14:55:31 Use device set Femoral Dx 14:55:40 A MULTIPACK Pigtail 5 Fr catheter was advanced over the wire and used for Procedure. 14:55:43 LV angiography performed. 14:55:47 LV gram done using ALVARENGA 14:55:52 EF : 30 % 14:55:54 Catheter removed. 14:56:17 A MULTIPACK JL 4.0 5Fr catheter was advanced over the wire and used for Procedure. 14:56:21 LCA angiography performed. 14:56:33 ACIST Syringe (50388) opened to sterile field. 14:56:34 Bag Decanter (2001S) opened to sterile field. 14:56:35 Medline Cath Pack ([id number]) opened to sterile field. 14:56:36 ACIST Hand Control (01254) opened to sterile field. 14:56:36 ACIST Manifold (01963) opened to sterile field. 14:56:37 DIAGNOSTIC Multipack 5Fr catheter set ([id number]) opened to sterile field. 14:56:38 Tegaderm 4 x 4 (1626W) opened to sterile field. 14:56:41 EMERALD Guide Wire (056-188) opened to sterile field. 14:57:17 Catheter removed. 14:57:24 A MULTIPACK 3DRC 5Fr catheter was advanced over the wire and used for Procedure. 14:57:50 Versed 2 mg I.V. was administered by Александр Fragoso RN; for sedation; Verbal order read back and verified. 14:58:53 EXOSEAL 6Fr (EX600) opened to sterile field. 15:01:07 Sheath removed intact; hemostasis achieved with Exoseal to the Right Femoral artery. 15:01:10 Procedure ended.(Physican Out) 15:01:20 Fluoroscopy time 01.10 minutes. 15:01:26 Flurop Dose total: 299 15::26 Fluoroscopy dose: 299 mGy 15:01:34 Dose Area Product 46512 mGy/cm. 15:01:41 Contrast amount:Isovue 300 47ml. 15:01:44 Maximum allowable dose exceeded? No. 15:01:46 Sharps counted by scrub and verified by R.N. 15:01:48 Insertion/operative site no bleeding no hematoma. 15:01:52 Post right femoral artery:stable 15:02:03 Post-procedure physical assessment completed. ASA score P 3 - A patient with severe systemic disease as per Dewayne Adams MD. 15:02:09 Post procedure rhythm: unchanged. 15:02:12 Estimated blood loss: 5 ml 15:02:15 Post procedure instruction explained to patient.Patient verbalizes understanding. 15:02:27 Procedure and supply charges have been captured, reviewed, submitted and are correct. 15:03:40 Procedure Complication : No complications 15:03:45 Vital chart was stopped 15:03:47 [facility] Findings: mild to moderate CAD (<70%) 15:03:52 Operative report dictated upon procedure completion. 15:03:53 See physician's report for complete and final results. 15:03:55 Report given to Med II. 15:04:00 Patient transfered to Med II with Bed. 15:04:04 Procedure ended. 15:04:04 Full Disclosure recording stopped 15:04:11 End room use (Document Last) 15:06:35 Lab Result : Creatinine 1.1 mg/dl 15:06:35 Lab Result : BUN 20 mg/dl 15:06:35 Lab Result : Hemoglobin 16.8 g/dl 15:06:35 Lab Result : eGFR NONAFRICAN 54 ml/min 15:13:40 Bleeding risk 3.%. 15:13:44 Patient diabetic? No. 15:13:58 Patient pain scale 0/10 ?. 15:14:15 IV patent on arrival in right wrist with 0.9% NaCl at O. 15:14:19 Lab results completed and on chart. 15:14:25 Risk of Mortality: 1. 15:14:29 Risk of blood transfusion: 3. 15:14:34 Risk of DIEGO: 4.2 15:14:42 Sharps counted by scrub and verified by R.N. 15:15:37 Maximum allowable contrast dose (3.7 X eGFR X 0.75)149 ml. Device Usage Item Name Manufacture Quantity Catalog Hospital Part Current Minimal L ot# / Number Charge Number Stock Stock Serial# Code MULTIPACK Cardinal 1 [id number] 5 Pigtail 5 Health Fr catheter MULTIPACK Cardinal 1 145161 5 JL 4.0 5Fr Health catheter ACIST Acist 1 57031 607146 554963 217926 20 Syringe Medical (04159) Systems Inc Bag Microtek 1 2001S 999029 88158 464744 5 Decanter Medical Inc. (2001S) Medline Medline 1 [id number] 922717 62055 153697 5 Cath Pack ([id number]) ACIST Hand Acist 1 69310 042465 828949 400710 5 Control Medical (58064) Systems Inc ACIST Acist 1 57039 443583 099605 715296 5 Manifold Medical (15949) Systems Inc DIAGNOSTIC Cardinal 1 ST5637 420371 31679 369908 30 Multipack Health 5Fr catheter set (QN3476) Tegaderm 4 3M 1 1626W 401818 681339 827861 5 x 4 (1626W) EMERALD Cardinal 1 754-911 936879 316130 094003 5 Guide Wire Health (502-043) MULTIPACK Cardinal 1 686523 5 3DRC 5Fr Health catheter EXOSEAL 6Fr Cardinal 1 EX600 882545 449247 159294 10 (EX600) Health Signature Audit [place] Stage Time Signature Unsigned Intra-Procedure 12/05/2018 Steph Wright 3:16:38 PM RT(R) Intra-Procedure 12/05/2018 Александр 3:17:21 PM Fouzia SOSA Intra-Procedure 12/05/2018 Dewayne Adams 3:17:41 PM [id number] [place] [address]
[2018-12-05 14:26] VITALS: BP 140/95
[2018-12-05 14:32] LABS: BASOPHILS 0 % (0-2); EOSINOPHILS 0 % (0-7); HEMATOCRIT 49.1 % (36.0-48.0); HEMOGLOBIN 16.8 g/dL (12-16); IMMATURE GRANULOCYTES 0.4 % (0-5); MCHC 34.2 g/dL (31.0-37.0); MCV 90.6 fL (80.0-100.0); MONOCYTES 6.9 % (2-11); NEUTROPHILS 78.7 % (40-80); PLATELET COUNT 150 10x3/uL (130-400); RBC 5.42 10x6/uL (4.00-5.40); RDW 13.5 % (11.5-14.5); WBC 15.5 10x3/uL (4.8-10.8)
[2018-12-05 14:39] LABS: CALC OSMOLALITY 274 mosm/kg (275-300); CALCIUM 8.9 mg/dL (8.5-10.1); CARBON DIOXIDE 24.4 mmol/L (21.0-32.0); CHLORIDE - SERUM 103 mmol/L (98-107); CREATININE - SERUM 1.1 mg/dL (0.6-1.3); POTASSIUM - SERUM 4.2 mmol/L (3.5-5.1); SODIUM 134 mmol/L (136-145); UREA NITROGEN 20 mg/dL (7-18); eGFR NON AFRICAN AMERICAN 54 mL/min (90-120)
[2018-12-05 14:43] LABS: INR 1.48 (0.85-1.17); PROTIME 17.4 SECONDS (11.6-15.0)
[2018-12-05 14:51] LABS: GLUCOSE 177 mg/dL (74-106)
[2018-12-05 14:53] LABS: APTT 177.3 SECONDS (22.8-39.4)
[2018-12-05 15:01] LABS: ALBUMIN 3.5 g/dL (3.4-5.0); ALKALINE PHOSPHATASE 102 U/L (46-116); ALT (SGPT) 10 U/L (10-68); BILIRUBIN - TOTAL 0.54 mg/dL (0.2-1.3); CKMB 1.4 U/L (0.0-3.6); CREATINE KINASE 67 UL (21-215); MAGNESIUM - SERUM 1.8 mg/dL (1.8-2.4); PROTEIN - SERUM 7.3 g/dL (6.4-8.2)
[2018-12-05 15:07] LABS: TROPONIN-I 0.151 ng/mL (0.000-0.060)
--- NOTE | 2018-12-05 15:30 | NUR ---
RECEIVED PT TO ROOM 2114 VIA BED FROM CLIENT SERVICES ASSISTANT AAOX4 RESP UNLABORED SKIN W/D COLOR WNL DRSG C/D/I TO RT GROIN PPPX4 VSS TELEMETRY SHOWS SR RATE 90 WILL CONTINUE TO MONITOR
[2018-12-05] MEDS ORDERED: MOBIC7.5 MG PO (15:36)
[2018-12-05] MEDS ORDERED: CYCLOBENZAPRINE10 MG PO (15:38)
[2018-12-05] MEDS ORDERED: TOPAMAX200 MG PO (15:40)
[2018-12-05] MEDS ORDERED: LISINOPRIL5 MG PO (15:42)
[2018-12-05] MEDS ORDERED: KLOR-CON 1010 MEQ PO (15:44)
[2018-12-05] MEDS ORDERED: MELATONIN5 MG PO (15:46)
[2018-12-05] MEDS ORDERED: LIPITOR10 MG PO (15:46)
[2018-12-05] MEDS ORDERED: FUROSEMIDE20 MG PO (15:47)
[2018-12-05] MEDS ORDERED: CATAPRES0.1 MG PO (15:49)
[2018-12-05 16:56] VITALS: BP 132/64; BMI 28.4
[2018-12-05 20:00] VITALS: BP 121/81
--- NOTE | 2018-12-05 20:19 | NUR ---
RECIEVED BEDSIDE REPORT. ALERT AND ORIENTED X4. DSG TO RT GROIN CDI. UP AD KELLIE AT THIS TIME. CONT TO RECIEVE NS AT 100CC/HR. IV TO RIGHT WRIST. RIGHT LEG BRUISED AND SWOLLEN. REPORTED A FALL ABOUT A WEEK AGO. TELEMETRY IN PLACE. DENIES ANY NEEDS AT THIS TIME.
[2018-12-06] VITALS: BP 114/67
[2018-12-06 09:04] VITALS: BP 145/92
--- NOTE | 2018-12-06 10:53 | NUR ---
TELEMETRY SR. ECHO COMPLETED AT BS. WILL CONT. PLAN OF CARE.
--- NOTE | 2018-12-06 14:04 | NUR ---
TELEMETRY SR. CALL LIGHT IN REACH. WILL CONT. TO MONITOE NEEDS.
[2018-12-06 14:57] VITALS: Ht 160 cm; Wt 72.6 kg
[2018-12-06 15:55] VITALS: BP 127/82
[2018-12-06 18:15] VITALS: BP 121/82
--- NOTE | 2018-12-06 19:24 | NUR ---
RECIEVED BEDSIDE SHIFT REPORT. ALERT AND ORIENTED X4. UP AD KELLIE. DSG TO LEFT GROIN CDI. TELEMETRY IN PLACE. BRUISING AND SWELLING TO LEFT LOWER EXTREMITY. C/O HEAD ACHE AND ASKED FOR TYLENOL. DENIES ANY NEEDS ATTHIS TIME.
[2018-12-06 19:42] VITALS: BP 100/74
[2018-12-06 23:49] VITALS: BP 106/74
[2018-12-07 04:48] VITALS: BP 121/65
[2018-12-07 09:04] VITALS: BP 125/74
--- NOTE | 2018-12-07 11:01 | NUR ---
UPON ADMIT PATIENT HAS NOT HAD A FLU SHOT FOR THIS YEAR. WHEN ASKED, PATIENT STATES THAT SHE HAD ONE 2 WEEKS AGO.
[2018-12-07] MEDS ORDERED: ENTRESTO 24 MG1 EACH PO (11:20)
[2018-12-07] MEDS ORDERED: COREG6.25 MG PO (11:20)
[2018-12-07] MEDS ORDERED: ISOSORBIDE MONO30 M1 PO (11:21)
--- NOTE | 2018-12-07 11:56 | MORECARE ---
CASE MANAGEMENT DISCHARGE SUMMARY PATIENT: TAWNY TYSON UNIT: [id number] ADM DATE: 12/05/18 AGE: 58 : 62 SEX: F ROOM/BED: D.9232 AUTHOR: JAMIEDOC PHYSICIAN: REFERRING PHYSICIAN: VICTORIANO DONAHUE MD DATE OF SERVICE: 12/07/18 Discharge Plan Patient Name: TAWNY TYSON Facility: [facility]:[place] : 1960 Planned Disposition: Home Anticipated Discharge Date: 12/07/18 Discharge Date: Expected LOS: 2 Initial Reviewer: [email or web address] Initial Review Date: 12/07/2018 Generated: 12/07/18 12:55 pm Comments DCP- Discharge Planning Updated by [email or web address]: Juventino Mccrary on 12/07/18 10:[address] Patient Name: TAWNY TYSON Admission Status: ER Accout number: [id number] Admission Date: 12-05-2018 : 1960 Admission Diagnosis: Attending: ZAINAB DONAHUE Current LOS: 2 Anticipated DC Date: 12-07-2018 Planned Disposition: Home Primary Insurance: [employer] [facility] Discharge Planning Comments: CM MET WITH PT AND SPOUSE IN ROOM TO DISCUSS DISCHARGE PLANNING AND NEEDS. TAWNY TYSON provided verbal consent to discuss current and ongoing needs with/in the presence of: SPOUSE, ROB. PT REPORTS LIVING AT HOME INDEPENDENTLY WITH HIS SPOUSE. PT HAS HOME OXYGEN SHE DOES NOT USE. CPAP SHE DOES NOT USE, WALKER AND WHEELCHAIR FROM [facility]. PT HAS NO OUTSIDE SERVICES ASSISTING IN THE HOME. CM DISCUSSED AVAILABILITY OF HOME HEALTH, REHAB SERVICES AND MEDICAL EQUIPMENT. PT DENIES DISCHARGE NEEDS, REPORTS HER SPOUSE IS HERE TO PICK HER UP FOR DISCHARGE HOME.METALLOGRAPHER NURSE NOTIFIED. Fowl Blood Tester: Juventino Mccrary DCPIA - Discharge Planning Initial Assessment Updated by [email or web address]: Juventino Mccrary on 12/07/18 11:51 am * Is the patient Alert and Oriented? Yes * How many steps to enter\exit or inside your home? RAMP * PCP DR. LLANOS AT DR. CORONEL'S OFFICE * Pharmacy [facility] * Preadmission Environment Home with Family * ADLs Independent * Equipment CPAP Oxygen Walker Wheelchair * Other Equipment HOME OXYGEN - NOT USING CPAP - NOT USE PROVIDER LINDSAY GALVEZ * List name and contact numbers for known caregivers / representatives who currently or will assist patient after discharge: ROB TYSON, SPOUSE, * Verbal permission to speak to the caregivers and representatives has been obtained from the patient. Yes * Community resources currently utilized None * Please name any agencies selected above. NONE * Additional services required to return to the preadmission environment? No * Can the patient safely return to the preadmission environment? Yes * Has this patient been hospitalized within the prior 30 days at any hospital? No Patient Name: TAWNY TYSON Page 12265 at 1156 All edits/amendments must be made on the electronic document DICTATION DATE: 12/07/181154 WEB PUBLISHER: KIT 12/07/18 115 RPT#: [id number] DC DATE: STATUS: ADM IN [facility] [address] [place] [address] END OF REPORT
--- NOTE | 2018-12-07 12:26 | NUR ---
IV AND TELEMETRY DCD. DC PLANS GIVEN. UNDERSTANDING VOICED. ESCORTED TO CAR BY W/C.
--- NOTE | 2018-12-14 11:40 | OP ---
PATIENT NAME: TAWNY TYSON MEDICAL RECORD: [id number] :62 LOCATION:D.M2 D.2115 ADMISSION DATE:12/05/18 SURGEON: VICTORIANO DONAHUE MD DATE OF OPERATION: 12/05/2018 PROCEDURES: 1. Left heart catheterization. 2. Selective coronary angiography. 3. Left ventriculogram. INDICATION: Chest pain, EKG compatible with acute myocardial infarction. DESCRIPTION OF PROCEDURE: After informed consent was obtained and after a detailed description of the risks, benefits as well as alternative therapies, the patient elected to proceed with angiogram and heart catheterization. The right femoral area was prepped and draped in normal sterile fashion. Right femoral artery was cannulated via modified Seldinger technique with placement of 6-Turkmen sheath. All catheters exchanged through this sheath. FINDINGS: The left ventriculogram was performed in the standard 30-degree ALVARENGA view, reveals global hypokinesis throughout all segments. Overall ejection fraction estimated at 30%. SELECTIVE CORONARY ANGIOGRAPHY: Left main, left anterior descending, left circumflex, right coronary all smooth-walled vessels. No angiographic evidence of coronary artery disease; however, there was slow flow throughout all vessels. OVERALL IMPRESSION: Nonischemic cardiomyopathy with ejection fraction 30%, but no fixed obstructive coronary artery disease. TRANSINT:[id number] Voice Confirmation ID: [id number] DOCUMENT ID: [id number] VICTORIANO DONAHUE MD at 1140 CC: [id number] DICTATION DATE: 12/05/18 1504 DISPENSARY CLERK: 12/05/18 2232 DIS IN 12/07/18 [address] [address] [place] [address]
--- NOTE | 2018-12-14 11:40 | EC ---
PATIENT:TAWNY TYSON DATE OF SERVICE: 12/05/18 SEX: F MEDICAL RECORD: [id number] DATE OF : 62 LOCATION:D. D.211 AGE OF PATIENT: 58 ADMISSION DATE: 12/05/18 REFERRING PHYSICIAN: INTERPRETING PHYSICIAN: VICTORIANO ADAMS MD ECHOCARDIOGRAM REPORT ECHO CHARGES 4 ECHO COMPLETE Date: 12/06/18 CLINICAL DIAGNOSIS: SOB ECHOCARDIOGRAPHIC MEASUREMENTS (adult normal given) AC root (d.<3.7cm) 2.5 cm LV Septum d (<1.2 cm> 0.7 cm Valve Excursion 1.6 cm LV Septum (systole) 1.0 cm Left Atria (s.<4.0cm> 3.0 cm LVPW d(<1.2cm) 1.0 cm RV (d.<2.3cm) 1.7 cm LVPW (sytole) 1.1 cm LV diastole(<5.6CM) 5.1 cm MV E-F(>70mm/sec) cm LV systole 4.5 cm LVOT Diameter 1.7 cm MV exc.(>10mm) cm Est.ejection fraction (50-75%) % DOPPLER: LVIT cm/sec A 77 cm/sec E 35 cm/sec LA cm/sec RVSP 17.2 mmHg LVOT 111 cm/sec AOP1/2T m/s Asc. Ao 120 cm/sec RVOT 71 cm/sec RA cm/sec PA 92 cm/sec AV Gradient Peak 5.7 mmHg AV Mean 4.5 mmHg AV Area 1.9 cm MV Gradient Peak 4.1 mmHg MV Mean 1.9 mmHg MV Area cm COMMENTS: Straight Line Press Setter: Ervin DEL RIO [place] Steward/Stewardess: 1 Dr. Adams TAPE# PACS Pericardial Effusion N DATE OF SERVICE: 12/06/2018 PROCEDURE: Echocardiogram. FINDINGS: 1. Left ventricular chamber size is upper limits of normal to mildly dilated. Left ventricular systolic function is markedly reduced at 25% to 30%. 2. Left atrium, right atrium, and right ventricular chamber sizes are within normal limits. 3. Valvular structures have normal structure and motion. ECHOCARDIOGRAM REPORT [id number] TAWNY TYSON 4. Doppler interrogation reveals no significant valvular insufficiency or stenosis. 5. No evidence of pericardial effusion or left ventricular thrombus. TRANSINT:[id number] Voice Confirmation ID: [id number] DOCUMENT ID: [id number] VICTORIANO ADAMS MD at 1140 CC: [id number] DICTATION DATE: 12/07/18 121 LOANS CONSULTANT: 12/07/18 1218 DIS IN 12/07/18 [place] [id number] [place] [id number]
--- NOTE | 2018-12-14 11:40 | HP ---
PATIENT: TAWNY TYSON MEDICAL RECORD: [id number] ACCOUNT: [id number] LOCATION:[address] : [birth year] ADMISSION DATE: 12/05/18 PCP: SAMANTHA CORONEL MD HISTORY AND PHYSICAL EXAMINATION DIAGNOSES: 1. Acute anterolateral myocardial infarction. 2. Hypertension. 3. Family history of coronary artery disease. HISTORY OF PRESENT ILLNESS: Ms. Tyson has no history of ischemic heart disease, no cardiac history. She had sudden onset of chest discomfort approximately 2 hours ago. EMS has significant ST elevation anterolaterally on their EKG. She was given nitro and aspirin in the ambulance. Her pain is better, but she still has an elephant sensation on the chest. Her EKG is definitely better as well. Initially, her pain was 10/10. Her pain is now at a 4/10. She has no cardiac history. Only history of hypertension for which she was recently started on medication. She has strong family history of coronary artery disease. Nonsmoker. FAMILY HISTORY: Strongly positive for premature coronary artery disease. SOCIAL HISTORY: Denies smoking, ETOH. Lives , works in the [place] area. REVIEW OF SYSTEMS: The patient reports easy bruising but reports no swollen glands. The patient reports no fever, no night sweats, no significant weight gain, no significant weight loss. No significant exercise tolerance. The patient reports no dry eyes, no irritation, no vision change. Patient reports no difficulty hearing and no ear pain. Patient reports no frequent nose bleeds or nose and sinus problems. Patient reports on arm pain on exertion. No shortness of breath while lying down. No history of heart murmur. Patient reports no cough, no wheezing or coughing up blood. Patient reports no abdominal pain, no vomiting. Normal appetite. No diarrhea and not vomiting blood. No nausea and no constipation. Patient reports no incontinence. No difficulty urinating. No hematuria. No increased frequency. Patient reports no muscle aches. No weakness, no arthralgias, no back pain. No swelling of the extremities. Patient reports no abnormal mole, no jaundice, no rashes. Reports no loss of consciousness. No weakness and no numbness. No seizures, dizziness, or headaches. The patient reports no depression, no sleep disturbance, feeling safe in a relationship and no alcohol abuse. Patient reports on fatigue. Reports no runny nose or sinus pressure. No itching, no hives, and no frequent sneezing. PHYSICAL EXAMINATION: CONSTITUTIONAL/GENERAL APPEARANCE: Well nourished, well developed, appears stated age. EYES: Lids and conjunctivae noninjected. No discharge. No pallor. ENT: Lips within normal limit. No cyanosis. No pallor. NECK: Carotid arteries, bilateral normal upstroke. No bruits. No thrills. No jugular venous pressure or distention. CERVICAL LYMPH NODES: Nontender. Nonenlarged. THYROID: Not enlarged. No nodules. CARDIOVASCULAR: Precordial exam, nondisplaced. No heaves or pericardial thrills. Rate and rhythm, regular. Heart sounds, normal S1, normal S2. No S3, no gallop, no rub. Systolic murmur, not heard. Diastolic murmur, not heard. HISTORY AND PHYSICAL [id number] [place] Lauren RESPIRATORY: Respiratory effort, unlabored. Normal curvature. No thoracic deformity. No chest wall tenderness. Percussion, resonant. Auscultation, clear. No wheezes, no rales, no rhonchi. ABDOMEN: Soft, nondistended, nontender. No abdominal pain, no vomiting and normal appetite. MUSCULOSKELETAL: No joint tenderness, normal gait, normal tone. SKIN: Warm and dry. OVERALL IMPRESSION: Acute anterolateral myocardial infarction. At this time, her EKG is improved, but she still has a pressure-like sensation on the anterior chest. Still has mild ST elevation in the lateral leads. We will proceed with coronary angiography. Further care depends upon findings of the angiography. TRANSINT:[id number] Voice Confirmation ID: [id number] DOCUMENT ID: [id number] VICTORIANO DONAHUE MD at 1140 CC: [id number] DICTATION DATE: 12/05/18 142 SET UP MOLD TECHNICIAN: 12/05/18 1440 DIS IN 12/07/18 [facility] [address] [place] [address]
--- NOTE | 2018-12-14 11:41 | DS ---
PATIENT:TAWNY TYSON :62 MEDICAL RECORD: [id number] DISCHARGE SUMMARY ADMISSION DATE: 12/05/18 DISCHARGE DATE: 12/07/18 DIAGNOSES: 1. Nonischemic cardiomyopathy. 2. Non-Q-wave myocardial infarction. 3. Hypertension. Mrs. Tyson presents with chest pain and elevated troponin; however, cardiac catheterization revealed no significant coronary artery disease. She did have a nonischemic cardiomyopathy. Ejection fraction in the 30% range. She was started on carvedilol as well as Entresto and Imdur. She had no further episodes of chest discomfort. Her heart rate and blood pressure tolerate these medications well. She will follow up with [facility] 1 month. Plan for repeat ejection fraction evaluation with echo at approximately 3-4 months. TRANSINT:[id number] Voice Confirmation ID: [id number] DOCUMENT ID: [id number] VICTORIANO DONAHUE MD at 1141 CC: [id number] DICTATION DATE: 12/07/18 1043 DAY CARE HOME MOTHER: 12/08/18 0204 DIS IN 12/07/18 [place] [id number] [place] [address]
== END 2018-12-07 12:28 | disposition home or self-care (01) | DRG 281 ==
LOC: D.ER 14:14 → D.M2 14:20
PROVIDERS: ADMIT Internal Medicine Interventional Cardiology; ATTEND Internal Medicine Interventional Cardiology
PROC: B2151ZZ Fluoroscopy of Left Heart using Low Osmolar Contrast (ICD-10-PCS; 2018-12-05)
PROC: 4A023N7 Measurement of Cardiac Sampling and Pressure, Left Heart, Percutaneous Approach (ICD-10-PCS; 2018-12-05)
PROC: B2111ZZ Fluoroscopy of Multiple Coronary Arteries using Low Osmolar Contrast (ICD-10-PCS; principal; 2018-12-05 14:27)
DX: I21.09 ST elevation (STEMI) myocardial infarction involving other coronary artery of anterior wall (principal); I42.9 Cardiomyopathy, unspecified; I10 Essential (primary) hypertension; Z86.73 Personal history of transient ischemic attack (TIA), and cerebral infarction without residual deficits

== ENCOUNTER → 2019-02-21 16:52 | Outpatient (CLI) | payer BC, MEDICARE ==
[2018-12-06 14:57] VITALS: BMI 28.3
[~2019-02-21 16:52] MED LIST changes: +CATAPRES0.1 MG PO; +COREG6.25 MG PO; +ENTRESTO 24 MG1 EACH PO; +FUROSEMIDE20 MG PO; +ISOSORBIDE MONO30 M1 PO; +KLOR-CON 1010 MEQ PO; +LIPITOR10 MG PO; +LISINOPRIL5 MG PO; +MELATONIN5 MG PO; +MOBIC7.5 MG PO
[2019-02-21 17:02] LABS: CALCIUM 9.8 mg/dL (8.5-10.1); CREATININE - SERUM 0.9 mg/dL (0.6-1.3)
== END | disposition home or self-care (01) ==
LOC: D.LABREF 16:52
PROVIDERS: ATTEND Internal Medicine Cardiovascular Disease
DX: I10 Essential (primary) hypertension (principal)